=== PATIENT | male | born 1975 | race Caucasian/White ===

== ENCOUNTER 2023-05-18 07:30 | Outpatient (CLI) | payer OTHER, SELFPAY | END 2023-05-18 07:31 | disposition home or self-care (01) | LOC: NFLDREF 05-21 07:40 | PROVIDERS: PCP Family Medicine; Referring Provider Family Medicine; Visit Provider Family Medicine | DX: Z13.6 Encounter for screening for cardiovascular disorders (principal) | CPT/HCPCS: 80061 ==

== ENCOUNTER 2023-07-19 08:56 | Outpatient (CLI) | payer OTHER, SELFPAY ==
--- NOTE | 2023-07-19 10:28 | W.ANESCHARGE ---
Anesthesia Charges Start Date/Time Anesthesia Start Date: 07/19/23 Anesthesia Start Time: 10:05 Stop Date/Time Anesthesia Stop Date: 07/19/23 Anesthesia Stop Time: 10:26
--- NOTE | 2023-07-19 10:35 | W.ANESCHARGE ---
Anesthesia Charges Start Date/Time Anesthesia Start Date: 07/19/23 Anesthesia Start Time: 10:05 Stop Date/Time Anesthesia Stop Date: 07/19/23 Anesthesia Stop Time: 10:26
== END 2023-07-19 08:57 | disposition home or self-care (01) ==
LOC: OP CLINIC 08:57
PROVIDERS: PCP Family Medicine; Visit Provider Internal Medicine
DX: Z12.11 Encounter for screening for malignant neoplasm of colon (principal)
CPT/HCPCS: 00811; 00812; 45378; J2704

== ENCOUNTER 2024-06-16 07:43 | Outpatient (CLI) | payer BC, SELFPAY ==
--- OUTSIDE RECORDS SUMMARY | 2024-06-17 07:51 | XMS_ITS | Clinical Summary ---
Author Organization [facility] Address [address] [place] [address] Care Team Providers Care Student Accounts Coordinator Name Role Phone Elsewhere, Pcp Primary Care Provider Unavailabl e Source Comments Patient records contain information from all sites at [facility]. For routine questions regarding patient records, call [phone] during business hours, M-F 8:00 AM - 5:00 PM Central Time. Record requests for emergency care only can be directed to [phone] at any time.[facility] Allergies No known active allergies Medications * This document contains information received from the source organization and may not represent a complete record from that organization. multivitamin tablet Take 1 tablet by mouth daily. 07/02/2013 Active meloxicam (MOBIC) 15 mg tabletIndication s:Pain Neck Take 1 tablet (15 mg total) by mouth daily. 30 tablet 1 04/08/2021 Active methylphenidate HCl (Concerta) 18 mg CR tablet Take 1 tablet (18 mg total) by mouth every morning. 30 tablet 05/27/2021 Active acetaminophen (TYLENOL) 500 mg tablet Take 1,000 mg by mouth every 6 (six) hours as needed for pain. Active ibuprofen (ADVIL,MOTRIN) 200 mg tablet Take 400 mg by mouth every 6 (six) hours as needed for pain. Active Active Problems Problem Noted Date Diagnosed Date Attention Deficit With Hyperactivity Disorder Overview (12/05/2016): ADHD - Attention deficit disorder with hyperactivity Immunizations Name Administration Dates Next Due DTP 06/05/1979,01/18/1978,1977 DTaP (Infanrix, Tripedia) 11/13/2008 HepA Adult 08/07/2013,07/25/2011 Influenza TIV (IM) 04/27/2013 Influenza, Unspecified 06/26/2011 MMR 03/20/1995 Measles 04/03/1979 Mumps 04/03/1979 OPV 06/05/1979, 9,01/18/1978,1977 Td (Adult), adsorbed 09/05/2015 Tdap 11/13/2008 typhoid vaccine, parenteral (discontinued) 07/26/2011 Family History Medical History Relation Name Comments Alcohol abuse Father Tobacco Father Unknown Father Alcohol abuse Mother lukas Breast cancer Mother lukas Melanoma Mother lukas Smoker Mother lukas Stroke Mother lukas Diabetes Sister 1 maxim type 1 Relation Name Status Comments Father Alive Maternal Grandfather Maternal Grandmother Mother lukas (Age 56) Paternal Grandfather Paternal Grandmother Sister 1 maxim Alive Sister 2 Alive Social History Tobacco Use Types Packs/Day Years Used Date Smoking Tobacco: Former Cigarettes 0.5 9 1 995 - 07/16/2003 Smokeless Tobacco: Current Chew Tobacco Cessation:Ready to Q uit: Yes; Counseling Given: Yes Alcohol Use Standard Drinks/Week Comments Yes 4 (1 standard drink = 0.6 oz pur e alcohol) Couple times a month Humiliation, Afraid, Rape, and Kick questionnair e Answer Date Recorded Within the last year, have y ou been afraid of your partner or ex-partner? No 12/23/2020 Within the last year, have y ou been humiliated or emotionally abused in other ways by your partner or ex-partner? No Within the last year, have y ou been kicked, hit, slapped, or otherwise physically hurt by your partner or ex-partner? No 12/23/2020 Within the last year, have y ou been raped or forced to have any kind of sexual activity by your partner or ex-partner? No 12/23/2020 Social Connection and Isolat ion Panel [NHANES] Answer Date Recorded In a typical week, how many times do you talk on the phone with family, friends, or neighbors? Three times a week 12/23/2020 How often do you get togethe r with friends or relatives? More than three times a week 12/23/2020 How often do you attend chur ch or orthodox services? 1 to 4 times per year 12/23/2020 Do you belong to any clubs o r organizations such as hinduism groups, unions, fraternal or athletic groups, or school groups? No 12/23/2020 How often do you attend meet ings of the clubs or organizations you belong to? Patient declined 12/23/2020 Are you , , di vorced, , never , or living with a partner? Never 12/23/2020 AUDIT-C Answer Date Recorded Q1: How often do you have a drink containing alc ohol? 2-3 times a week 12/23/2020 Q2: How many drinks containi ng alcohol do you have on a typical day when you are drinking? 3 or 4 12/23/2020 Q3: How often do you have si x or more drinks on one occasion? Monthly 12/23/2020 Overall Financial Resource Strain (CARDIA) Answe r Date Recorded How hard is it for you to pa y for the very basics like food, housing, medical care, and heating? Not hard at all 12/23/2020 PHQ-2 Answer Date Recorded PHQ-2 Score 0 08/06/2020 [facility] - Occupational Stress Questionnaire Answer Date Recorded Do you feel stress - tense, restless, nervous, or anxious, or unable to sleep at night because your mind is troubled all the time - these days? Rather much 12/23/2020 Exercise Vital Sign Answer Date Recorde d On average, how many days pe r week do you engage in moderate to strenuous exercise (like a brisk walk)? 5 days 12/23/2020 On average, how many minutes do you engage in exercise at this level? 60 min 12/23/2020 Hunger Vital Sign Answer Date Recorded Within the past 12 months, y ou worried that your food would run out before you got the money to buy more. Never true 12/24/19 21 Within the past 12 months, t he food you bought just didn't last and you didn't have money to get more. Never true 12/23/2020 PRAPARE - Transportation Answer Date Re corded In the past 12 months, has l ack of transportation kept you from medical appointments or from getting medications? No 12/14 In the past 12 months, has l ack of transportation kept you from meetings, work, or from getting things needed for daily living? No 12/23/2020 Housing Stability Vital Sign Answer Tyler e Recorded In the last 12 months, was t here a time when you were not able to pay the mortgage or rent on time? No 12/23/2020 In the last 12 months, how many places have you lived? 1 12/23/2020 In the last 12 months, was t here a time when you did not have a steady place to sleep or slept in a long-term (including now)? No 12/23/2020 Nutrition Answer Date Recorded Nutrition: EVOO Fat Source Yes 12/23 On average, how many serving s of fruits and vegetables do you eat per day (serving size is equal to 1 cup or approximately the size of a tennis ball)? 0-1 12/23/2020 Dental Answer Date Recorded Dental: Regular Dentist Unknown 01/12/20 Employment Answer Date Recorded Employment status Employed and actively working without restrictions 12/23/2020 Education Answer Date Recorded What is the highest level of school you have completed or the highest degree you have received? GED or equivalent Sex and Gender Information Value Date Recorded Sex Assigned at Not on file Legal Sex Male 8:33 AM DATABASE ANALYST Gender Identity Not on file Sexual Orientation Not on file Last Filed Vital Signs Vital Sign Reading Time Taken Comments Blood Pressure 132/83 09/15/2023 8:00 PM DATABASE ANALYST Pulse 90 09/15/2023 8:00 PM DATABASE ANALYST Temperature 36 C (96.8 F) 09/15/2023 6:45 PM DATABASE ANALYST Respiratory Rate 20 09/15/2023 6:45 PM DATABASE ANALYST Oxygen Saturation 92% 09/15/2023 8:00 PM DATABASE ANALYST Inhaled Oxygen Concentration - - Weight 85.4 kg (188 lb 4.4 oz) 09/15/2023 6:47 P M DATABASE ANALYST Height 171.5 cm (5' 7.52) 10/08/2020 12:52 PM C DT Body Mass Index 29.04 10/08/2020 12:52 PM CDT Plan of Treatment Health Maintenance Due Date Last Done Comments CT Colonography 1977 Cologuard 1977 Colonoscopy 1977 Colorectal Cancer Screening 1977 FIT 1977 Hepatitis C Screening 1977 IPV Vaccines (4 of 4 - 4-dose series) 1981 06/05/1979, 04/03/1979, 01/18/1978, Additional history exists Hepatitis B Vaccines (1 of 3 - 19+ 3-dose series) 1996 Tobacco Cessation counseling 10/06/2021 10/06/2020 Depression Screening (Annual PHQ-2) 07/16/2023 COVID-19 Vaccine ( season) 2024 Fasting Glucose for Diabetes Screening 04/08/2024 04/08/2021, 08/10/2020, 09/28/2015, Additional history exists Influenza Vaccine (#1) 2024 04/27/2013, 2010 Lipid (Cholesterol) Screening 08/10/2025 08/10/2020, 09/28/2015, 07/02/2013, Additional history exists DTaP,Tdap,and Td Vaccines (6 - Td or Tdap) 09/05/2025 09/05/2015, 11/13/2008, 11/13/2008, Additional history exists Hepatitis A Vaccines Completed 08/07/2013, 07/25/19 HIV Screening Completed 09/28/2015 Pneumococcal vaccine (0-64 years) Aged Out No longer eligible based on patient's age to complete this topic Procedures Procedure Name Priority Date/Time Associated Diagnosis Comments BASIC METABOLIC PANEL, S/P Routine 04/08/2021 2:21 PM CDT Hypercalcemia LIPID PANEL, S Routine 08/10/2020 9:22 AM DATABASE ANALYST General Medical Examination Test Abnormal Finding Adult HIV-1/-2 AG AND AB SCREEN Routine 09/28/2015 3:26 PM CDT from Last 3 Months or Most Recently Relevant to Health Maintenance Results * (ABNORMAL) Basic Metabolic Panel (04/08/2021 2:21 PM CDT) Pathologist [facility] Potassium, P 4.3 3.6 - 5.2 mmol/L 04/08/2021 3:41 PM CDT OWAT Comment:Testing performed on serum Sodium, P 140 135 - 145 mmol/L 04/08/2021 3:41 PM CDT OWAT Chloride, P 103 98 - 107 mmol/L 04/08/2021 3:41 PM CDT OWAT Bicarbonate, P 27 22 - 29 mmol/L 04/08/2021 3:41 PM CDT OWAT Anion Gap, P 10 7 - 15 04/08/2021 3:41 PM CDT OWAT BUN (Blood Urea Nitrogen), P 18 8 - 24 mg/dL 04/08/2021 3:41 PM CDT OWAT Creatinine 1.11 0.74 - 1.35 mg/dL 04/08/2021 3:41 PM CDT OWAT eGFR-Black/Afri can [place] Islander >90 >=60 mL/min/BSA 04/08/2021 3:41 PM CDT OWAT Comment: ----ADDITIONAL INFORMATION---- Estimated GFR calculated using the 2009 CKD_EPI creatinine equation. eGFR Non-Black/Afric an [place] Islander 81 >=60 mL/min/BSA 04/08/2021 3:41 PM CDT OWAT Comment: ----ADDITIONAL INFORMATION---- Estimated GFR calculated using the 2009 CKD_EPI creatinine equation. Calcium, Total, P 10.5(H) 8.6 - 10.0 mg/dL 04/08/2021 3:41 PM CDT OWAT Glucose, P 113 70 - 140 mg/dL 04/08/2021 3:41 PM CDT OWAT Blood (Blood, Venous) 04/08/2021 2:21 PM CDT 04/08/2021 2:30 PM CDT us Katy Herrera P.A.-C., P.A. LAB BLOOD ADD-O N Final Result [facility] [address] [place] [address], [place] OWAT [facility] [place] [address] [place] [address] * Lipid Panel (08/10/2020 9:22 AM DATABASE ANALYST) Cholesterol, Total 188 mg/dL 2020 10:07 AM DATABASE ANALYST OWAT Comment: ----REFERENCE VALUE---- Desirable: < 200 Borderline high: 200 - 239 High: > or = 240 Triglycerides 76 mg/dL 08/10/2020 10:07 AM DATABASE ANALYST OWAT Comment: ----REFERENCE VALUE---- Normal: <150 Borderline high: 150-199 High: 200-499 Very high: > or =500 Cholesterol, HDL 71 >=40 mg/dL 08/10/19 10:07 AM DATABASE ANALYST OWAT Calculated LDL 102 mg/dL 08/10/2020 10:07 AM DATABASE ANALYST OWAT Comment: ----REFERENCE VALUE---- Desirable: <100 Above Desirable: 100-129 Borderline high: 130-159 High: 160-189 Very high: > or =190 Cholesterol, Non-HDL, Calculated 117 mg/dL 08/10/2020 10:07 AM DATABASE ANALYST OWAT Comment: ----REFERENCE VALUE---- Desirable: <130 Above Desirable: 130-159 Borderline high: 160-189 High: 190-219 Very high: > or =220 Blood (Blood, Venous) 08/10/2020 9:22 AM DATABASE ANALYST 08/10/2020 9:23 AM DATABASE ANALYST us Davian Block M.D. LAB BLOOD ADD-ON Final Resul t [facility] [address] [place] [address], [facility] OWAT [facility] [place] [address], [place] [address] * HIV-1/-2 Ag and Ab Screen (09/28/2015 3:26 PM CDT) Pathologist [facility] HIV-1/-2 Antibody Negative Negative POWERCHART Comment: Negative result does not rule out HIV infection. If acute HIV infection is suspected in a high-risk individual, submit plasma specimen for HIV-1 RNA quantification test (HIVDQ) and/or HIV-2 DNA/RNA test (FHV2Q). Test Performed by: [facility] - [address] [address] Auto Bumper Straightener: Tom Hernández II, M.D., Ph.D. Blood 09/28/2015 3:26 PM CDT Inderjit Ruano M.D. LAB MICROBIOLOGY - BLOOD ORD ERABLES Final Result POWERCHART from Last 3 Months or Most Recently Relevant to Health Maintenance Insurance [id number] [place] [id number] [place] [place] [id number] Care Teams Student Accounts Coordinator Relationship Specialty Start Date End Date Elsewhere, Pcp PCP - General 08/04/19
--- OUTSIDE RECORDS SUMMARY | 2024-06-17 07:51 | XMS_ITS ---
Author Organization [facility] Address [address] [place] [address] Care Team Providers Care Nozzle Cement Sprayer Helper Name Role Phone Unavailable Unavailable Unavailable Surgery Details Not on file Complications Check Surgery Details section. Procedure Estimated Blood Loss Check Surgery Details section. Procedure Findings Check Surgery Details section. Procedure Specimens Taken Check Surgery Details section.
--- OUTSIDE RECORDS SUMMARY | 2024-06-17 07:51 | XMS_ITS | Referral Summary ---
Author Organization [facility] Address [address] [place] [address] Care Team Providers Care Manager Fraud Name Role Phone Elsewhere, Pcp Primary Care Provider Unavailabl e Source Comments Patient records contain information from all sites at [facility]. For routine questions regarding patient records, call [phone] during business hours, M-F 8:00 AM - 5:00 PM Central Time. Record requests for emergency care only can be directed to [phone] at any time.[facility] Allergies [...] Tdap 11/13/2008 typhoid vaccine, parenteral (discontinued) 07/26/2011 Social History Tobacco Use Types Packs/Day Years [...] often do you attend chur ch or evangelical services? 1 to 4 times per year 12/23/2020 Do you belong to any clubs o r organizations such as jew groups, unions, fraternal or athletic groups, or [...] Answer Date Recorded PHQ-2 Score 0 08/06/2020 [facility] - Occupational Stress Questionnaire Answer Date Recorded [...] place to sleep or slept in a snf (including now)? No 12/23/2020 Nutrition Answer Date [...] on file Legal Sex Male 8:33 AM REFINERY OPERATOR Gender Identity Not on file Sexual Orientation Not on file Last Filed Vital Signs Vital Sign Reading Time Taken Comments Blood Pressure 132/83 09/15/2023 8:00 PM REFINERY OPERATOR Pulse 90 09/15/2023 8:00 PM REFINERY OPERATOR Temperature 36 C (96.8 F) 09/15/2023 6:45 PM REFINERY OPERATOR Respiratory Rate 20 09/15/2023 6:45 PM REFINERY OPERATOR Oxygen Saturation 92% 09/15/2023 8:00 PM REFINERY OPERATOR Inhaled Oxygen Concentration - - Weight 85.4 kg (188 lb 4.4 oz) 09/15/2023 6:47 P M REFINERY OPERATOR Height 171.5 cm (5' 7.52) 10/08/2020 12:52 PM C DT Body Mass Index 29.04 10/08/2020 12:52 PM CDT Plan of Treatment Not on file Procedures Procedure Name Priority Date/Time Associated Diagnosis Comments BASIC METABOLIC PANEL, S/P Routine 04/08/2021 2:21 PM CDT Hypercalcemia LIPID PANEL, S Routine 08/10/2020 9:22 AM REFINERY OPERATOR General Medical Examination Test Abnormal Finding Adult HIV-1/-2 AG AND AB SCREEN Routine 09/28/2015 3:26 PM CDT from Last 3 Months or Most Recently Relevant to Health Maintenance Results * (ABNORMAL) Basic Metabolic Panel (04/08/2021 2:21 PM CDT) Potassium, P 4.3 3.6 - 5.2 mmol/L [...] 04/08/2021 3:41 PM CDT OWAT eGFR-Black/Afri can Barbadian >90 >=60 mL/min/BSA 04/08/2021 3:41 PM CDT OWAT Comment: ----ADDITIONAL INFORMATION---- Estimated GFR calculated using the 2009 CKD_EPI creatinine equation. eGFR Non-Black/Afric an Barbadian 81 >=60 mL/min/BSA 04/08/2021 3:41 PM CDT [...] P.A. LAB BLOOD ADD-O N Final Result [facility] [address] [place] [address], [facility] OWAT [facility] [place] [address] [place] [address] * Lipid Panel (08/10/2020 9:22 AM REFINERY OPERATOR) Cholesterol, Total 188 mg/dL 2020 10:07 AM REFINERY OPERATOR OWAT Comment: ----REFERENCE VALUE---- Desirable: < 200 Borderline high: 200 - 239 High: > or = 240 Triglycerides 76 mg/dL 08/10/2020 10:07 AM REFINERY OPERATOR OWAT Comment: ----REFERENCE VALUE---- Normal: <150 Borderline high: 150-199 High: 200-499 Very high: > or =500 Cholesterol, HDL 71 >=40 mg/dL 08/10/19 10:07 AM REFINERY OPERATOR OWAT Calculated LDL 102 mg/dL 08/10/2020 10:07 AM REFINERY OPERATOR OWAT Comment: ----REFERENCE VALUE---- Desirable: <100 Above Desirable: 100-129 Borderline high: 130-159 High: 160-189 Very high: > or =190 Cholesterol, Non-HDL, Calculated 117 mg/dL 08/10/2020 10:07 AM REFINERY OPERATOR OWAT Comment: ----REFERENCE VALUE---- Desirable: <130 Above Desirable: 130-159 Borderline high: 160-189 High: 190-219 Very high: > or =220 Blood (Blood, Venous) 08/10/2020 9:22 AM REFINERY OPERATOR 08/10/2020 9:23 AM REFINERY OPERATOR us Davian Block M.D. LAB BLOOD ADD-ON Final Resul t [facility] [address] [place] [address], [facility] OWAT [facility] [place] [address] [place] [address] * HIV-1/-2 Ag and Ab Screen (09/28/2015 3:26 PM CDT) HIV-1/-2 Antibody Negative Negative POWERCHART Comment: Negative result does not rule out HIV infection. If acute HIV infection is suspected in a high-risk individual, submit plasma specimen for HIV-1 RNA quantification test (HIVDQ) and/or HIV-2 DNA/RNA test (FHV2Q). Test Performed by: [facility] [address] [place] [address] Director Of Development And Marketing: Tom Hernández II, M.D., Ph.D. Blood 09/28/2015 3:26 PM CDT us Inderjit Ruano M.D. LAB MICROBIOLOGY - BLOOD ORD ERABLES Final Result POWERCHART from Last 3 Months or Most Recently Relevant to Health Maintenance Insurance [id number] [place] [id number] [place] [place] [id number] Care Teams Manager Fraud Relationship Specialty Start Date End Date Elsewhere, Pcp PCP - General 08/04/19
--- OUTSIDE RECORDS SUMMARY | 2024-06-17 07:51 | XMS_ITS | Clinical Summary ---
Author Organization [facility] Address [place], [place] [address] Care Team Providers Care Pathology Secretary/Transcriptionist Name Role Phone Pcp, No Primary Care Provider Unavailabl e Allergies No known active allergies Medications Medication Sig Dispensed Refills Start Date End Date Status famotidine (PEPCID) 20 mg tablet Take 1 tablet by mouth once daily. 6 tablet 0 04/27/2013 Active omeprazole (PRILOSEC) 40 mg Delayed-Release capsuleIndications:E pigastric pain Take 1 capsule by mouth once daily. 30 capsule 06/27/2016 Active Active Problems Problem Noted Date Diagnosed Date Pneumonia 04/24/2013 Headache(784.0) 04/24/2013 Carpal tunnel syndrome 09/10/2012 Immunizations Name Administration Dates Next Due Influenza, IIV3 (Age >=3 years) 04/27/2013 MMR 03/20/1995 Td (Age >=7 Years) 11/13/2008 Social History Tobacco Use Types Packs/Day Years Used Date Smoking Tobacco: Former Smokeless Tobacco: Current Chew Comments:quit 10 years ago Alcohol Use Standard Drinks/Week Comments Yes 0 (1 standard drink = 0.6 oz pur e alcohol) weekly Sex and Gender Information Value Date Recorded Sex Assigned at Not on file Gender Identity Not on file Sexual Orientation Not on file Obstetrics History Last Filed Vital Signs Vital Sign Reading Time Taken Comments Blood Pressure 152/92 01/15/2022 8:06 AM CDT Pulse 62 01/15/2022 8:06 AM CDT Temperature 36.6 C (97.9 F) 01/15/2022 8:06 AM CDT Respiratory Rate 14 01/15/2022 8:06 AM CDT Oxygen Saturation 100% 01/15/2022 8:06 AM CDT Inhaled Oxygen Concentration - - Weight 86.2 kg (190 lb) 05/16/2020 10:48 AM TANK HOUSE OPERATOR HELPER Height 170.2 cm (5' 7) 05/16/2020 10:48 AM TANK HOUSE OPERATOR HELPER Body Mass Index 29.76 05/16/2020 10:48 AM TANK HOUSE OPERATOR HELPER Plan of Treatment Health Maintenance Due Date Last Done Comments Tdap 1988 Depression screening for age 12+ 1989 HIV for age 15-65 1992 BMI (ht and wt on same day) for age 18+ 11/15/1995 Hepatitis C screening for ag e 18-79 11/15/1995 Tetanus booster 11/13/2018 11/13/2008 Colonoscopy through age 75 2022 Lipids for age 45-75 2022 COVID-19 vaccine series (2023- season) 2024 Influenza for age 9-49 03/16/2024 04/27/2013 Pneumococcal series for age 6-64 Aged Out No longer eligible based on patient's age to complete this topic Additional Health Concerns Infection Onset Date Last Indicated MRSA Comment:+ 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 PCP - General 01/15/22
== END 2024-06-16 07:44 | disposition home or self-care (01) ==
LOC: NFLDREF 06-17 07:49
PROVIDERS: PCP Family Medicine; Referring Provider Family Medicine; Visit Provider Family Medicine
DX: E78.5 Hyperlipidemia, unspecified (principal)
CPT/HCPCS: 80061

== ENCOUNTER 2024-07-03 08:10 | Outpatient (CLI) | payer BC, SELFPAY ==
--- NOTE | 2024-07-03 08:15 | MR_ITS ---
[facility] [address] [facility] [address] Phone:?[phone] Fax:?[phone] Referring Physician Information: Frederick Anders M.D. [id number] [facility] [address] Phone:?[phone] Fax:?[phone] Patient:Jeremy Duarte D.O.B:?1975 Sex:?Male Phone:?[phone] [facility] MRN:?[id number] Exam Date:?07/03/2024 EXAM: MRI of the LEFT ELBOW, without contrast CLINICAL HISTORY: Left elbow pain. Evaluate for biceps tendinopathy. COMPARISONS: Plain radiographs 06/24/2024. TECHNICAL: MR sequences of the left elbow: Axials: PD, T2 Coronals: PD, STIR, T1, T2 Sagittals: PD, T2 Sedation: None Contrast: None FINDINGS: Bones: No fracture or suspicious bone marrow signal abnormality. Ligaments: Medial ulnar collateral: Intact. Radial collateral proper: Intact. Lateral ulnar collateral: Intact. Annular ligament: Intact. Myotendinous structures: Biceps: There is ill-defined low-grade partial tearing/mild tendinopathy of the distal biceps tendon at the radial tuberosity insertion. No well- defined/discrete retracted distal biceps tendon tear is seen. The lacertus fibrosis is intact. There is no bicipitoradial bursitis. Triceps: Intact. Brachialis: Intact. Supinator: Intact. Forearm extensors: Intact. Forearm flexors: Intact. Elbow joint: Joint fluid: Physiologic amount of joint fluid. Ganglion cyst: None. Radiohumeral plica: Unremarkable. Osteochondral surfaces: There is extensive near full-thickness and full- thickness chondral loss over the capitellum and over the posterior and medial portion of the radial head with minimal associated subchondral cystic changes. There is mild radiocapitellar osteophytosis. Intra-articular bodies: None identified. Bursae: No bursitis identified. Nerves: Ulnar: There is a small anconeus epitrochlearis muscle best seen on axial series 4 images 23 through 19. Median: Unremarkable. Radial: Unremarkable. IMPRESSION: 1. Ill-defined low-grade partial tearing/mild tendinopathy of the distal biceps tendon at the radial tuberosity insertion. No well-defined/discrete retracted distal biceps tendon tear. Intact lacertus fibrosis. No bicipitoradial bursitis. 2. Extensive near full-thickness and full-thickness chondral loss over the capitellum and over the posterior and medial portion of the radial head with minimal associated subchondral cystic changes. Mild radiocapitellar osteophytosis. 3. Small anconeus epitrochlearis muscle, an anatomic variant accessory muscle that is often an incidental finding but does have an association with compression of the ulnar nerve within the cubital tunnel in the appropriate clinical setting. 4. No ligamentous injury of the left elbow. RCB Electronically signed on 07/03/2024 11:52:00 AM by Hank Price M.D.
== END 2024-07-03 08:11 | disposition home or self-care (01) ==
LOC: MRI 08:11
PROVIDERS: PCP Family Medicine; Visit Provider Orthopaedic Surgery
DX: M25.522 Pain in left elbow (principal); S46.212A Strain of muscle, fascia and tendon of other parts of biceps, left arm, initial encounter; M25.712 Osteophyte, left shoulder; M79.602 Pain in left arm
CPT/HCPCS: 73221

== ENCOUNTER 2024-07-25 09:19 | Day surgery (SDC) | payer BC, SELFPAY ==
[2024-07-25] VITALS (10 sets, daily range): BP systolic 108–134; BP diastolic 64–85; PULSE 72–92; RESP 16–18; TEMP 36.3; O2SAT 93–99; BMI 28.0
--- OUTSIDE RECORDS SUMMARY | 2024-07-25 09:22 | XMS_ITS | Clinical Summary ---
Author Organization [facility] Address [address] [place] [address] Care Team Providers Care Sole Rougher Name Role Phone Elsewhere, Pcp Primary Care Provider Unavailabl e Source Comments Patient records contain information from all sites at [facility]. For routine questions regarding patient records, call [phone] during business hours, M-F 8:00 AM - 5:00 PM Central Time. Record requests for emergency care only can be directed to [phone] at any time.[facility] Allergies No known active allergies Medications * [...] often do you attend chur ch or bahai services? 1 to 4 times per year 12/23/2020 Do you belong to any clubs o r organizations such as faith groups, unions, fraternal or athletic groups, or [...] Answer Date Recorded PHQ-2 Score 0 08/06/2020 [facility] - Occupational Stress Questionnaire Answer Date [...] place to sleep or slept in a long term (including now)? No 12/23/2020 Nutrition Answer Date [...] on file Legal Sex Male 8:33 AM CIRCUIT TESTER Gender Identity Not on file Sexual Orientation Not on file Last Filed Vital Signs Vital Sign Reading Time Taken Comments Blood Pressure 132/83 09/15/2023 8:00 PM CIRCUIT TESTER Pulse 90 09/15/2023 8:00 PM CIRCUIT TESTER Temperature 36 C (96.8 F) 09/15/2023 6:45 PM CIRCUIT TESTER Respiratory Rate 20 09/15/2023 6:45 PM CIRCUIT TESTER Oxygen Saturation 92% 09/15/2023 8:00 PM CIRCUIT TESTER Inhaled Oxygen Concentration - - Weight 85.4 kg (188 lb 4.4 oz) 09/15/2023 6:47 P M CIRCUIT TESTER Height 171.5 cm (5' 7.52) 10/08/2020 12:52 [...] exists Hepatitis A Vaccines Completed 08/07/2013, 07/25/19 12 HIV Screening Completed 09/28/2015 Pneumococcal vaccine (0-49 years) Aged Out No longer eligible based on patient's age to complete this topic Procedures Procedure Name Priority Date/Time Associated Diagnosis Comments BASIC METABOLIC PANEL, S/P Routine 04/08/2021 2:21 PM CDT Hypercalcemia LIPID PANEL, S Routine 08/10/2020 9:22 AM CIRCUIT TESTER General Medical Examination Test Abnormal Finding Adult HIV-1/-2 AG AND AB SCREEN Routine 09/28/2015 3:26 PM CDT from Last 3 Months or Most Recently Relevant to Health Maintenance Results * (ABNORMAL) Basic Metabolic Panel (04/08/2021 2:21 PM CDT) Pathologist [facility] Potassium, P 4.3 3.6 - 5.2 mmol/L [...] 04/08/2021 3:41 PM CDT OWAT eGFR-Black/Afri can Macedonian >90 >=60 mL/min/BSA 04/08/2021 3:41 PM CDT OWAT Comment: ----ADDITIONAL INFORMATION---- Estimated GFR calculated using the 2009 CKD_EPI creatinine equation. eGFR Non-Black/Afric an Macedonian 81 >=60 mL/min/BSA 04/08/2021 3:41 PM CDT OWAT Comment: ----ADDITIONAL INFORMATION---- Estimated GFR calculated using the 2009 CKD_EPI creatinine equation. Calcium, Total, P 10.5(H) 8.6 - 10.0 mg/dL 04/08/2021 3:41 PM CDT OWAT Glucose, P 113 70 - 140 mg/dL 04/08/2021 3:41 PM CDT OWAT Blood (Blood, Venous) 04/08/2021 2:21 PM CDT 04/08/2021 2:30 PM CDT us Katy Herrera P.A.-C., P.A., M.S., M.P.H. L AB BLOOD ADD-ON Final Result [facility] [address] [place] [address], [place] OWAT [facility] [place] [address] [place] [address] * Lipid Panel (08/10/2020 9:22 AM CIRCUIT TESTER) Cholesterol, Total 188 mg/dL 2020 10:07 AM CIRCUIT TESTER OWAT Comment: ----REFERENCE VALUE---- Desirable: < 200 Borderline high: 200 - 239 High: > or = 240 Triglycerides 76 mg/dL 08/10/2020 10:07 AM CIRCUIT TESTER OWAT Comment: ----REFERENCE VALUE---- Normal: <150 Borderline high: 150-199 High: 200-499 Very high: > or =500 Cholesterol, HDL 71 >=40 mg/dL 08/10/19 10:07 AM CIRCUIT TESTER OWAT Calculated LDL 102 mg/dL 08/10/2020 10:07 AM CIRCUIT TESTER OWAT Comment: ----REFERENCE VALUE---- Desirable: <100 Above Desirable: 100-129 Borderline high: 130-159 High: 160-189 Very high: > or =190 Cholesterol, Non-HDL, Calculated 117 mg/dL 08/10/2020 10:07 AM CIRCUIT TESTER OWAT Comment: ----REFERENCE VALUE---- Desirable: <130 Above Desirable: 130-159 Borderline high: 160-189 High: 190-219 Very high: > or =220 Blood (Blood, Venous) 08/10/2020 9:22 AM CIRCUIT TESTER 08/10/2020 9:23 AM CIRCUIT TESTER us Davian Block M.D. LAB BLOOD ADD-ON Final Resul t [facility] [address] [place] [address], [facility] OWAT [facility] in [place] [address] [place] [address] * HIV-1/-2 Ag and Ab Screen (09/28/2015 3:26 PM CDT) Pathologist [facility] HIV-1/-2 Antibody Negative Negative POWERCHART Comment: Negative result does not rule out HIV infection. If acute HIV infection is suspected in a high-risk individual, submit plasma specimen for HIV-1 RNA quantification test (HIVDQ) and/or HIV-2 DNA/RNA test (FHV2Q). Test Performed by: [address] [address] Director Data Management: Tom Hernández II, M.D., Ph.D. Blood 09/28/2015 3:26 PM CDT Inderjit Ruano M.D. LAB MICROBIOLOGY - BLOOD ORD ERABLES Final Result POWERCHART from Last 3 Months or Most Recently Relevant to Health Maintenance Insurance [id number] [facility] [place] [id number] [employer] [place] [id number] Care Teams Sole Rougher Relationship Specialty Start Date End Date Elsewhere, Pcp PCP - General 08/04/19
--- OUTSIDE RECORDS SUMMARY | 2024-07-25 09:22 | XMS_ITS | Clinical Summary ---
Author Organization [facility] Address [place], [place] [address] Care Team Providers Care Licensed Clinical Psychologist Name Role Phone Pcp, No Primary Care Provider Unavailabl e Allergies No known active allergies Medications famotidine (PEPCID) 20 mg tablet Take 1 tablet by mouth once daily. 6 tablet 0 04/27/2013 Active omeprazole (PRILOSEC) 40 mg Delayed-Release capsuleIndicati ons:Epigastric pain Take 1 capsule by mouth once [...] at Not on file Legal Sex Male 7:00 AM HISTOTECHNOLOGIST SUPERVISOR Gender Identity Not on file Sexual Orientation [...] 86.2 kg (190 lb) 05/16/2020 10:48 AM HISTOTECHNOLOGIST SUPERVISOR Height 170.2 cm (5' 7) 05/16/2020 10:48 AM HISTOTECHNOLOGIST SUPERVISOR Body Mass Index 29.76 05/16/2020 10:48 AM HISTOTECHNOLOGIST SUPERVISOR Plan of Treatment Health Maintenance Due Date [...] 9-49 03/16/2024 04/27/2013 Pneumococcal series for age 6-49 Aged Out No longer eligible based on patient's age to complete this topic Additional Health Concerns Infection Onset Date Last Indicated MRSA Comment:+ 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 PCP - General 01/15/22
--- OUTSIDE RECORDS SUMMARY | 2024-07-25 09:22 | XMS_ITS | Referral Summary ---
Author Organization [facility] Address [address] [place] [address] Care Team Providers Care Caster Operator Name Role Phone Elsewhere, Pcp Primary Care Provider Unavailabl e Source Comments Patient records contain information from all sites at [facility]. For routine questions regarding patient records, call [phone] during business hours, M-F 8:00 AM - 5:00 PM Central Time. Record requests for emergency care only can be directed to [phone] at any time.[facility] Allergies No known active allergies Medications * [...] often do you attend chur ch or orthodoxy services? 1 to 4 times per year 12/23/2020 Do you belong to any clubs o r organizations such as yarsanism groups, unions, fraternal or athletic groups, or [...] Answer Date Recorded PHQ-2 Score 0 08/06/2020 [facility] - Occupational [...] place to sleep or slept in a custodial (including now)? No 12/23/2020 Nutrition Answer Date [...] on file Legal Sex Male 8:33 AM HIDE CURER Gender Identity Not on file Sexual Orientation Not on file Last Filed Vital Signs Vital Sign Reading Time Taken Comments Blood Pressure 132/83 09/15/2023 8:00 PM HIDE CURER Pulse 90 09/15/2023 8:00 PM HIDE CURER Temperature 36 C (96.8 F) 09/15/2023 6:45 PM HIDE CURER Respiratory Rate 20 09/15/2023 6:45 PM HIDE CURER Oxygen Saturation 92% 09/15/2023 8:00 PM HIDE CURER Inhaled Oxygen Concentration - - Weight 85.4 kg (188 lb 4.4 oz) 09/15/2023 6:47 P M HIDE CURER Height 171.5 cm (5' 7.52) 10/08/2020 12:52 PM C DT Body Mass Index 29.04 10/08/2020 12:52 PM CDT Plan of Treatment Not on file Procedures Procedure Name Priority Date/Time Associated Diagnosis Comments BASIC METABOLIC PANEL, S/P Routine 04/08/2021 2:21 PM CDT Hypercalcemia LIPID PANEL, S Routine 08/10/2020 9:22 AM HIDE CURER General Medical Examination Test Abnormal Finding Adult [...] 04/08/2021 3:41 PM CDT OWAT eGFR-Black/Afri can Surinamese >90 >=60 mL/min/BSA 04/08/2021 3:41 PM CDT OWAT Comment: ----ADDITIONAL INFORMATION---- Estimated GFR calculated using the 2009 CKD_EPI creatinine equation. eGFR Non-Black/Afric an Surinamese 81 >=60 mL/min/BSA 04/08/2021 3:41 PM CDT [...] M.P.H. L AB BLOOD ADD-ON Final Result [facility] [address] [place] [address], [place] OWAT [facility] in [place] [address] [place] [address] * Lipid Panel (08/10/2020 9:22 AM HIDE CURER) Cholesterol, Total 188 mg/dL 2020 10:07 AM HIDE CURER OWAT Comment: ----REFERENCE VALUE---- Desirable: < 200 Borderline high: 200 - 239 High: > or = 240 Triglycerides 76 mg/dL 08/10/2020 10:07 AM HIDE CURER OWAT Comment: ----REFERENCE VALUE---- Normal: <150 Borderline high: 150-199 High: 200-499 Very high: > or =500 Cholesterol, HDL 71 >=40 mg/dL 08/10/19 10:07 AM HIDE CURER OWAT Calculated LDL 102 mg/dL 08/10/2020 10:07 AM HIDE CURER OWAT Comment: ----REFERENCE VALUE---- Desirable: <100 Above Desirable: 100-129 Borderline high: 130-159 High: 160-189 Very high: > or =190 Cholesterol, Non-HDL, Calculated 117 mg/dL 08/10/2020 10:07 AM HIDE CURER OWAT Comment: ----REFERENCE VALUE---- Desirable: <130 Above Desirable: 130-159 Borderline high: 160-189 High: 190-219 Very high: > or =220 Blood (Blood, Venous) 08/10/2020 9:22 AM HIDE CURER 08/10/2020 9:23 AM HIDE CURER us Davian Block M.D. LAB BLOOD ADD-ON Final Resul t [facility] [address] [place] [address], [place] OWAT [facility] in [place] [address] [place] [address] * HIV-1/-2 Ag and Ab Screen (09/28/2015 3:26 PM CDT) HIV-1/-2 Antibody Negative Negative POWERCHART Comment: Negative result does not rule out HIV infection. If acute HIV infection is suspected in a high-risk individual, submit plasma specimen for HIV-1 RNA quantification test (HIVDQ) and/or HIV-2 DNA/RNA test (FHV2Q). Test Performed by: [facility] [address] [place] [address] Spiral [place] Winder: Tom Hernández II, M.D., Ph.D. Blood 09/28/2015 3:26 PM CDT Inderjit Ruano M.D. LAB MICROBIOLOGY - BLOOD ORD ERABLES Final Result POWERCHART from Last 3 Months or Most Recently Relevant to Health Maintenance Insurance [id number] [place] [id number] [employer] [place] [id number] Care Teams Caster Operator Relationship Specialty Start Date End Date Elsewhere, Pcp PCP - General 08/04/19
--- OUTSIDE RECORDS SUMMARY | 2024-07-25 09:23 | XMS_ITS ---
Author Organization [facility] Address [address] [place] [address] Care Team Providers Care Merchandise Processor Name Role Phone Unavailable Unavailable Unavailable Surgery Details Not on file Complications Check Surgery Details section. Procedure Estimated Blood Loss Check Surgery Details section. Procedure Findings Check Surgery Details section. Procedure Specimens Taken Check Surgery Details section.
--- NOTE | 2024-07-25 10:35 | P.ORPRC_ITS ---
Procedure Note Date of procedure: 07/25/24 Procedure: PREOPERATIVE DIAGNOSIS: 1. Left carpal tunnel syndrome POSTOPERATIVE DIAGNOSIS: 1. Left carpal tunnel syndrome PROCEDURE: 1. Left open carpal tunnel release SURGEON: Richard Anders MD. IT RISK AND ASSURANCE MANAGER: Anisa Romeo P.A.-C. An information services assistant was critical for this case to aid in patient positioning, tissue retraction, limb manipulation/positioning, and closure. ANESTHESIA: Local anesthetic IMPLANTS: None ESTIMATED BLOOD LOSS: 2 mL TOURNIQUET: Not utilized COMPLICATIONS: None evident INDICATIONS: The patient is a pleasant 48-year-old male with history of left hand numbness and tingling and nerve conduction studies that were consistent with left carpal tunnel syndrome. Symptoms were not improving with conservative treatment, and patient elected to proceed with surgical intervention consisting of left carpal tunnel release. Prior to surgery, the risks and benefits of the procedure were discussed with patient, all questions were answered, and informed consent was obtained. DESCRIPTION OF PROCEDURE: Patient was seen preoperatively, and operative site was marked. The subcutaneous tissues overlying the left carpal tunnel were injected with a combination of 1% lidocaine and 0.25% bupivacaine with epinephrine. Patient was then brought to the operating room and placed in the supine position on the OR table. A tourniquet was placed on the patient's left arm and left upper extremity was prepped and draped in usual sterile fashion. A surgical time-out was performed confirming patient name, procedure, and location. A skin incision measuring approximately 3-4 cm was made in line with the ring finger extending from the distal wrist flexion crease to Nino's cardinal line. Blunt dissection was used to dissect through subcutaneous tissues and palmar fascia. Bipolar electrocautery is used to maintain hemostasis. Transverse carpal ligament was identified and was sharply incised proximally with care taken to protect the underlying median nerve. The transverse carpal ligament was then sharply divided along its ulnar border using tenotomy scissors and a tunica-biloxi blade with care taken to protect the underlying median nerve. Once the transverse carpal ligament was divided, the antebrachial fascia was released proximally. The wound was then irrigated with normal saline. The skin incision was closed with 3-0 nylon horizontal mattress sutures, and a sterile dressing was applied. Patient was then transferred to the recovery room in stable condition. POSTOPERATIVE PLAN: 1. Patient will be discharged to home day of surgery. 2. Ice and elevation as needed for pain and swelling. 3. Tylenol and/or ibuprofen as needed for pain. 4. They were given instructions for wound care and finger range of motion exercises. 5. Return to the clinic for follow-up evaluation in 10-14 days for wound check and suture removal.
--- NOTE | 2024-07-25 10:35 | W.PM.H&PU ---
History & Physical Update History & Physical Update H&P Reviewed and patient assessed: No changes noted
[2024-07-25] MEDS: LIDOCAINE 1%-EPI 1:100,000 20 ML INFILTRATI (10:55)
[2024-07-25] MEDS: BUPIVACAINE 0.5% 30 ML INJECTION (10:55)
[2024-07-25] MEDS: ETHYL CHLORIDE 1 APPLICATION 1 APPLIC TOPICAL (10:55)
--- NOTE | 2024-07-25 11:34 | SUR.OPER ---
Tourniquet applied but not inflated.
[2024-07-25] MEDS: BACITRACIN OINTMENT BULK TUBE 1 APPLIC TOPICAL (11:45)
[2024-07-25] MEDS: IBUPROFEN 200 MG TABLET 400 MG PO (12:00)
[2024-07-25] MEDS: ACETAMINOPHEN 325 MG TABLET PO (12:00)
== END 2024-07-25 12:15 | disposition home or self-care (01) ==
LOC: OR 09:20
PROVIDERS: PCP Family Medicine; Visit Provider Orthopaedic Surgery
PROC: (CPT 64721; principal; 2024-07-25 11:00)
DX: G56.02 Carpal tunnel syndrome, left upper limb (principal)
CPT/HCPCS: 64721; A9270; J0665

== ENCOUNTER 2024-12-18 08:48 | Outpatient (CLI) | payer BC, SELFPAY | END 2024-12-18 08:49 | disposition home or self-care (01) | LOC: NFLDREF 08:51 | PROVIDERS: PCP Family Medicine; Visit Provider Family Medicine | DX: G47.10 Hypersomnia, unspecified (principal); E83.52 Hypercalcemia | CPT/HCPCS: 84443 ==

== ENCOUNTER 2025-06-23 11:15 | Emergency (ER) | payer BC, SELFPAY ==
--- NOTE | 2025-06-23 11:16 | ED.GENADULT ---
HPI - General Adult General Date Seen: 06/23/25 Chief complaint: Hypertension Stated complaint: High blood pressure Time Seen by Provider: 06/23/25 11:16 History of Present Illness HPI narrative: 49-year-old gentleman who has a history of ADHD, left elbow pain, carpal tunnel syndrome, tendinopathy of the left biceps, tobacco use, history of malignant melanoma more than 10 years ago. presents to the ER today with his family with concern for elevated blood pressure. Patient actually has been feeling a little bit unwell for a few weeks. Over the past couple of weeks he has been having trouble with sleeping. He is able to fall sleep and feels like he sleeps all night long. His does not really noticed that he snores or wakes up gasping. He is not really getting up at night to go to the bathroom or otherwise being restless but he just wakes up in the morning and feels like he has not got any rest at all. he has also been having some sweats at night. He feels like he can not nap most of the day every day. Along with that he has been noticing some dyspnea with exertion. 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 He has to wear a dust mask for that and notes that when he wears the dust mask he just cannot catch his breath. He has been doing this sort of labile or with the family for years and typically does not have any trouble breathing. He also notes some dyspnea with activity and exertion with other activities, not associated with the mask. He does not have a cough. No sore throat, stuffy note, fever. No recent travel. No swelling in his legs. No history PE. No history of CHF. No history of valvular disease or cardiac murmur. He does not smoke. He does drink alcohol socially but he and his family does not think he drinks to excess or has a problem with drinking. He does have some chest pain off and on. It typically feels like a tightness affecting mostly the left side of his chest and shoulder. This is actually been present, intermittently, for years. He recalls that he had workup for a couple years ago that was reassuring. He does not know why it happens. It tends to happen most commonly when he wakes up in the morning from sleep. He says his chest just feels tight any meds take a few deep breaths to make it feel better. His chest pain has been occurring lately, but not at a greater intensity or higher frequency that has been over the past couple of years. Last night he also noted some very blurry vision were both of his eyes felt scratch 3 and watery and he looked at his [place] tree and look very blurry. This morning he was just feeling unwell, fatigued, short of breath. He checked his blood pressure and was 166/114. He does normally measures blood pressure but has never had a blood pressure at this reading before. He also has a mild headache. Normal stools. No black or bloody stools. No diarrhea. Normal urination. No back pain, flank pain. No rash. No known sick exposures., Related Data Previous Rx's ?Medication ?Instructions ?Recorded methylphenidate HCl 27 mg 27 mg PO QAM #30 tabs 05/11/25 tablet,extended release 24 hr Allergies Allergy/AdvReac Type Severity Reaction Status Date / Time No Known Allergies Allergy Unknown Verified 06/23/25 11:26 [facility] Medical History (Updated 06/23/25 @ 14:14 by Tim Stoner MD) Chewing tobacco use ?Z72.0 - Tobacco use (ICD-10) Attention deficit hyperactivity disorder (ADHD) ?F90.9 - Attention-deficit hyperactivity disorder, unspecified type (ICD-10) Hypercalcemia ?E83.52 - Hypercalcemia (ICD-10) Malignant melanoma (09/13/11) ?C43.9 - Malignant melanoma of skin, unspecified (ICD-10) Chronic neck pain ?M54.2 - Cervicalgia (ICD-10) ?G89.29 - Other chronic pain (ICD-10) Numbness and tingling in left hand ?R20.0 - Anesthesia of skin (ICD-10) ?R20.2 - Paresthesia of skin (ICD-10) Left elbow pain ?M25.522 - Pain in left elbow (ICD-10) Left carpal tunnel syndrome ?G56.02 - Carpal tunnel syndrome, left upper limb (ICD-10) Arthritis of left elbow ?M19.022 - Primary osteoarthritis, left elbow (ICD-10) Tendinopathy of left biceps ?M67.922 - Unspecified disorder of synovium and tendon, left upper arm (ICD-10) History of severe acute respiratory syndrome coronavirus 2 (SARS-CoV-2) disease (05/2020) ?Z86.16 - Personal history of COVID-19 (ICD-10) History of Mohs micrographic surgery for skin cancer (09/13/11) ?Z85.828 - Personal history of other malignant neoplasm of skin (ICD-10) ?Z98.890 - Other specified postprocedural states (ICD-10) History of dysplastic nevus ?Z86.018 - Personal history of other benign neoplasm (ICD-10) Surgical History (Updated 02/01/22 @ 09:39 by Michael Carranza) Status post carpal tunnel release (2010) ?Z98.890 - Other specified postprocedural states (ICD-10) Family History (Updated 02/01/22 @ 09:40 by Michael Carranza) Mother Breast cancer Melanoma Stroke Sister Type 1 diabetes mellitus Social History (Updated 06/18/24 @ 07:08 by Anisa Mckeon~[facility], [facility]) What is your current living situation?: I presently have a place to live Problems where you live: declined to answer In the past 12 months, utilities in danger of being shut off: no In past 12 months, lack of transportation kept you from medical appts, meetings, work, or getting things needed for daily living: no In the past 12 mos, have been you worried that your food would run out before you had money to buy more?: never true In the past 12 mos, the food you bought just didn't last and you didn't have money to buy more?: never true Smoking Status: Never smoker Do you use any of these nicotine containing products: None Second hand tobacco smoke exposure: No How often do you have a drink containing alcohol: monthly or less How often do you have six or more drinks on one occasion: Never AUDIT-C Alcohol total score: 1 Non-prescribed substance use: denies use How often does anyone, including family, friends and others, physically hurt you: never How often does anyone, including family, friends and others, insult or talk down to you: never How often does anyone, including family, friends and others, threaten you with harm: never How often does anyone, including family, friends and others, scream or curse at you: never service: No Exam Narrative: Exam Narrative: Constitutional: Appears well-developed and well-nourished. Alert. Conversant. Non toxic. Able to speak full sentences. HENT: Head: Atraumatic. Nose: Nose normal. Mouth/Throat: Oral mucosa is clear and moist. no trismus. Pharynx normal. Tonsils symmetric. No tonsillar enlargement, erythema, or exudate. Eyes: Conjunctivae normal. EOM normal. Pupils equal, round, and reactive to light. No scleral icterus. Neck: Normal range of motion. Neck supple. No tracheal deviation present. No JVD Cardiovascular: Normal rate, regular rhythm. No gallop. No friction rub. No murmur heard. Symmetric radial and PT artery pulses Pulmonary/Chest: Effort normal. No stridor. No respiratory distress. No wheezes. No rales. No rhonchi . No tenderness. Abdominal: Soft. Bowel sounds normal. No distension. No mass. No tenderness. No rebound. No guarding. Musculoskeletal: RUE: Normal range of motion. No tenderness. No deformity LUE: Normal range of motion. No tenderness. No deformity RLE: Normal range of motion. No edema. No tenderness. No deformity LLE: Normal range of motion. No edema. No tenderness. No deformity Neurological: Alert and oriented to person, place, and time. Normal strength. CN II-VII intact. No sensory deficit. GCS eye subscore is 4. GCS verbal subscore is 5. GCS motor subscore is 6. Normal coordination Skin: Skin is warm and dry. No rash noted. No pallor. Normal capillary refill. Psychiatric: Normal mood. Normal affect. Const: Vital Signs, click to edit/add: Vital Signs - 24 hr 06/23/25 11:22 06/23/25 14:22 Temperature 97.6 F 98.0 F Pulse Rate [Right Pulse Oximeter] 95 78 Respiratory Rate 18 18 Blood Pressure [Ri ght Upper Arm] 130/89 130/78 Pulse Oximetry 93 98 Oxygen Delivery Me thod Room Air Room Air Course Vital Signs Vital signs: Initial Vital Signs Temperature 97.6 F 06/23/25 11:22 Temperature Source Temporal Artery Scan 06/23/25 11:22 Pulse Rate 95 06/23/25 11:22 Pulse Rhythm Regular 06/23/25 11:22 Pulse Strength 3+ Normal 06/23/25 11:22 Respiratory Rate 18 06/23/25 11:22 Blood Pressure 130/89 06/23/25 11:22 Blood Pressure Mean 102 06/23/25 11:22 Blood Pressure Position Sitting 06/23/25 11:22 Pulse Oximetry 93 06/23/25 11:22 Oxygen Delivery Method Room Air 06/23/25 11:22 Vital Signs Temperature 97.6 F 06/23/25 11:22 Pulse Rate 95 06/23/25 11:22 Respiratory Rate 18 06/23/25 11:22 Blood Pressure 130/89 06/23/25 11:22 Pulse Oximetry 93 06/23/25 11:22 Oxygen Delivery Method Room Air 06/23/25 11:22 Temperature 98.0 F 06/23/25 14:22 Pulse Rate 78 06/23/25 14:22 Respiratory Rate 18 06/23/25 14:22 Blood Pressure 130/78 06/23/25 14:22 Pulse Oximetry 98 06/23/25 14:22 Oxygen Delivery Method Room Air 06/23/25 14:22 Medical Decision Making MDM Narrative Medical decision making narrative: Pleasant 49-year-old gentleman presenting to the ER today with his with concern for symptoms including few weeks of poor sleep, generalized fatigue, also sometimes night sweats. Also some dyspnea on exertion that is new over the past couple weeks. He also has some chronic chest pain it is not changed from its baseline. Also blurry vision yesterday evening. He also noted that he was hypertensive this morning-BP was 166/114 this morning. It did come down to about 130/89 at ER triage. Differential is broad. 1. Cardiac. Consider possible angina with his new dyspnea on exertion over the past few weeks. EKG shows sinus rhythm and no definite ischemia. Initial troponin is normal. Given time since symptoms I do not think he needs serial troponins or admission. However consider the possibility that his dyspnea on exertion could be a symptom of angina. Will arrange an outpatient stress echo to be done within the next 48 hours. Heart score is2. No evidence for any arrhythmia, bradycardia, AFib, or other clear arrhythmogenic explanation for dyspnea. No signs of pulmonary edema or CHF on chest x-ray. BNP level is low. 2. Pulmonary. Consider infectious cause for his dyspnea. COVID/influenza/RSV is negative. Chest x-rays negative for pneumonia by my read.. no wheezing on clinical exam Consider possible PE. Overall is low risk but not 0 risk. We did obtain a D-dimer and is normal at 0.24. At this point risk of CT PA and associated radiation would outweigh the benefit. 3. Endocrine. TSH is normal. Glucose is normal at 106. 4. Renal/electrolytes. Kidney function normal. Electrolytes normal. 5. Heme. With recent night sweats consider malignancy. CBC shows normal white count hemoglobin, platelets. This point no clear evidence for lymphoma/leukemia. Patient will need close outpatient follow-up with PCP for retesting and further evaluation. Blood pressure was elevated at home up 160/115. His come down to normal without pharmacologic treatment here. At this point I think it is reasonable to monitor with home blood pressure monitoring. Hold off on blood pressure meds for now Discussed the uncertainty so far and or diagnostic workup and precautions for return to the ER. So far, workup is reassuring. However, if worsening symptoms or changing symptoms occur he should return to be rechecked right away. Lab Data Labs: Lab Results 06/23/25 06/23/25 Range/Units 12:05 12:52 WBC 4.61 (4.50-11.00) K/uL RBC 5.26 (4.30-5.90) m/uL Hgb 16.0 (13.5-17.5) gm/dL Hct 47.7 (37.0-53.0) % MCV 91 (80-100) fL MCH 30 (26-34) pg MCHC 34 (32-36) gm/dL RDW Coeff of Cesario 12.5 (11.5-15.5) % Plt Count 263 (140-440) K/uL Neut % (Auto) 54.9 (42.0-72.0) % Lymph % (Auto) 33.4 (20-44) % Buchanan % (Auto) 9.8 (0.0-11.0) % Eos % (Auto) 1.5 (0.0-7.0) % Baso % (Auto) 0.2 (0.0-3.0) % Neut # (Auto) 2.53 (1.7-7.0) K/uL Lymph # (Auto) 1.54 (0.90-2.90) K/uL Buchanan # (Auto) 0.50 (0.00-0.90) K/UL Eos # (Auto) 0.07 (0.00-0.50) K/uL Baso # (Auto) 0.01 (0.00-0.30) K/uL Abs Immat Gran (auto) 0.01 (0.00-0.30) K/uL Imm/Tot Granulo (auto) 0.2 % D-Dimer Quant (PE/DVT) 0.24 (0.00-0.50) ug/ml Sodium 136 (135-149) mmol/L Potassium 4.4 (3.6-5.1) mmol/L Chloride 101 (96-114) mmol/L Carbon Dioxide 22 (20-32) mmol/L Anion Gap 13 (7-15) mEq/L BUN 19 (5-24) mg/dL Creatinine 0.9 (0.5-1.5) mg/dL Estimated GFR 106 ml/min Glucose 106 (60-115) mg/dL Calcium 10.1 (8.4-10.6) mg/dL Total Bilirubin 0.8 (0.1-1.5) mg/dL AST 46 H (12-35) U/L ALT 57 H (4-50) U/L Alkaline Phosphatase 66 (40-150) U/L Troponin I < 0.01 (0.01-0.04) ng/mL NT-Pro-B Natriuret Pep < 20 (See Note) pg/mL Total Protein 7.6 (6.0-8.3) g/dL Albumin 4.8 (3.3-5.0) g/dL TSH 1.740 (0.270-4.200) uIU/mL SARS-CoV-2 (PCR) Negative SARS-CoV-2 (Negative) Influenza Type A (PCR) Negative PCR FLU A (Negative) Influenza Type B (PCR) Negative PCR FLU B (Negative) RSV (PCR) Negative PCR RSV (Negative) Lab Acknowledgement Test Added Imaging Data Chest x-ray: Attestation: I have reviewed the pertinent imaging results. My impression: no pulmonary edema. No acute infiltrate Radiologist's impression: IMPRESSION: Bibasilar subsegmental atelectasis. No lobar airspace consolidation. ECG Data Attestation: I personally reviewed and interpreted this ECG as follows: Interpretation: Normal sinus rhythm. Rate 75 KS interval 144 normal QRS axis. No pathologic Q-waves. Nonspecific T-wave inversions in leads [address] segment elevation depression. QT 368, QTC 410 Discharge Plan Discharge Clinical Impression: Dyspnea, Fatigue Patient Disposition: Home, Self-Care Condition: Stable Instructions: Dyspnea (ED), Stress Echocardiogram (DC) Additional Instructions: As we discussed, so far your workup looks reassuring. However based on her symptoms it clear that you need further workup. I have ordered a stress echocardiogram for you. Please follow-up for your stress echo, as scheduled. Additionally, please recheck with Dr. Caballero within 5-7 days for further evaluation. If you have any worsening trouble breathing, or other new symptoms such as worsening chest pain, fever, cough, bloody or black stools, or any problems please come back to the ER right away. Prescriptions: No Action methylphenidate HCl 27 mg tablet extended release 24hr 27 mg PO QAM Qty: 30 0RF Follow Up/Referrals: Neal Cordova MD [Primary Care Provider, Family Practice] Stand Alone Forms: Dr. TATTOFF Info Instructions
[2025-06-23 11:22] VITALS: BP 130/89; PULSE 95; RESP 18; TEMP 36.4; O2SAT 93
--- NOTE | 2025-06-23 11:47 | XR_ITS ---
Patient: MAU ROBERSON Facility:?[facility] Patient ID:?[id number] Site Patient ID:?[id number]. Site :?[id number] Study:?XRay-Chest -06/23/2025 12:01:36 PM Ordering Physician:Marian Dumont Final Report: INDICATION: Dyspnea on exertion TECHNIQUE: X-ray chest two views PA and lateral COMPARISON: None. FINDINGS: Lungs: There is subsegmental bibasilar atelectasis. No lobar airspace consolidation. No pleural effusion or pneumothorax. Heart/mediastinum: The heart size is normal. There are a few calcifications of the thoracic aorta. Osseous structures: There are mild degenerative changes in the spine. IMPRESSION: Bibasilar subsegmental atelectasis. No lobar airspace consolidation. Dictated by Ronald Witt MD @ 06/23/2025 12:08:53 PM (Electronic Signature)
[2025-06-23 12:25] LABS: Hematocrit* 47.7 % (37.0-53.0); Hemoglobin* 16.0 gm/dL (13.5-17.5); Immature Granulocytes Abs Auto 0.01 K/uL (0.00-0.30); Immature Granulocytes Pct Auto 0.2 %; Lymphocytes Absolute Auto 1.54 K/uL (0.90-2.90); Mean Corpuscular HGB Conc 34 gm/dL (32-36); Mean Corpuscular Hemoglobin 30 pg (26-34); Mean Corpuscular Volume 91 fL (80-100); RDW Coefficient of Variation % 12.5 % (11.5-15.5); Red Blood Count* 5.26 m/uL (4.30-5.90); White Blood Count* 4.61 K/uL (4.50-11.00)
[2025-06-23 12:28] LABS: Slide Review Reflex No
[2025-06-23 12:32] LABS: Albumin* 4.8 g/dL (3.3-5.0); Chloride* 101 mmol/L (96-114); Potassium* 4.4 mmol/L (3.6-5.1); Sodium* 136 mmol/L (135-149)
[2025-06-23 12:34] LABS: Blood Urea Nitrogen* 19 mg/dL (5-24); Creatinine* 0.9 mg/dL (0.5-1.5); Estimated Glomerular Filt Rate 106 ml/min
[2025-06-23 12:35] LABS: Alanine Aminotransferase* 57 U/L (4-50); Alkaline Phosphatase* 66 U/L (40-150); Anion Gap 13 mEq/L (7-15); Aspartate Amino Transferase* 46 U/L (12-35); Bilirubin Total* 0.8 mg/dL (0.1-1.5); Calcium* 10.1 mg/dL (8.4-10.6); Carbon Dioxide* 22 mmol/L (20-32); Glucose* 106 mg/dL (60-115); Total Protein* 7.6 g/dL (6.0-8.3)
[2025-06-23 12:51] LABS: D Dimer Quantitative* 0.24 ug/ml (0.00-0.50); NT Pro B Type NatriureticPept* < 20 pg/mL (See Note)
[2025-06-23 12:54] LABS: PCR FLU A Negative PCR FLU A (Negative); PCR FLU B Negative PCR FLU B (Negative); PCR RSV Negative PCR RSV (Negative); SARS PCR* Negative SARS-CoV-2 (Negative)
[2025-06-23 13:05] LABS: TSH With Reflex to FT4* 1.740 uIU/mL (0.270-4.200)
[2025-06-23 14:22] VITALS: BP 130/78; PULSE 78; RESP 18; TEMP 36.7; O2SAT 98
== END 2025-06-23 14:27 | disposition home or self-care (01) ==
PROVIDERS: Emergency Provider Emergency Medicine; PCP Family Medicine
DX: R03.0 Elevated blood-pressure reading, without diagnosis of hypertension (principal); R06.00 Dyspnea, unspecified; R53.83 Other fatigue; R07.89 Other chest pain; R51.9 Headache, unspecified
CPT/HCPCS: 36415; 71046; 80053; 83880; 84443; 84484; 85025; 85379; 87631; 93005; 99284; 99285

== ENCOUNTER 2025-06-30 14:48 | Outpatient (CLI) | payer BC, SELFPAY ==
--- NOTE | 2025-06-30 15:42 | W.PM.STED ---
Stress Test Note Date Date of test: 06/30/25 Providers Primary care provider: Neal Cordova Stress test physician: Harshal Reynaga Stress Test Note Stress test ordered: Stress Echo Indication for test: Shortness of breath Results discussion: This very nice patient presents for the above test, after discussion the risks benefits and side effects of the test, patient would like to continue. Cardiac stress test medical history form is reviewed entirely. Pretest EKG shows normal sinus rhythm with a ventricular rate of 62 blood pressure 112/[address] wave changes noted. Standard Devin protocol is employed over a time course of 9 minutes, achieved a metabolic equivalent 10.3 Mets his maximum was 164 which is 111% of the maximum. Test is terminated because of fulfillment of protocol, he did not have any significant chest pain shortness of breath or any set other subjective symptoms, review of the tracing showed no evidence of dysrhythmia, there is no ST wave changes suggestive of ischemia. Impression: Negative electrographic portion of stress echo, subjectively negative Follow up suggested: Await echo imaging, preliminary read reviewed by both me in tech showed no large wall motion abnormalities, final read by Cardiology pending, clinical correlation with this will be needed, the left this testing facility in good condition
[2025-06-30 15:54] VITALS: BP 122/78; PULSE 82; RESP 20; O2SAT 98
== END 2025-06-30 14:49 | disposition home or self-care (01) ==
LOC: STRESS 14:49
PROVIDERS: PCP Family Medicine; Visit Provider Emergency Medicine
DX: R06.09 Other forms of dyspnea (principal)
CPT/HCPCS: 93016; 93325; 93351